=== PATIENT | female | born 1965 | race Caucasian/White ===

== ENCOUNTER 2017-03-19 06:20 | Day surgery (SDC) | payer BC ==
[2017-03-19] MEDS ORDERED: Sodium Chloride 0.9% 1,000 ML IV SCH (07:00)
[2017-03-19] MEDS ORDERED: Midazolam 1 MG/ML 2 ML SDV ONE (07:39)
[2017-03-19] MEDS ORDERED: fentaNYL 100 MCG/2 ML SDV ONE (07:39)
[2017-03-19] MEDS ORDERED: Propofol 200 MG/20 ML SDV ONE (07:40)
[2017-03-19] MEDS ORDERED: Ondansetron 4 MG/2 ML SDV ONE (07:40)
[2017-03-19] MEDS ORDERED: Dexamethasone 4 MG/ML SDV ONE (07:40)
[2017-03-19 09:40] VITALS: BP 114/68
--- NOTE | 2017-03-20 07:30 | OR ---
DATE OF PROCEDURE: 03/19/2017 PROCEDURE: Colonoscopy. FINDINGS: Ascending colon polyp, 5 mm, completely removed using cold biopsy forceps. COMPLICATIONS: None. GENERAL STORE MANAGER: None. PREOPERATIVE DIAGNOSIS: Screening colonoscopy. POSTOPERATIVE DIAGNOSIS: Screening colonoscopy. RISK: Risks, benefits, alternatives, and limitations, including, but not limited to infection, bleeding, and perforation were explained to the patient and wished to proceed. PROCEDURE IN DETAIL: The patient was placed in left lateral decubitus position. Digital rectal exam was performed without abnormality. The scope was then introduced and advanced atraumatically through the ileocecal valve. The scope was brought back to the ascending, transverse, descending colon and retroflexed. In the ascending colon, an approximately 5 mm polyp was identified and completely removed. No abnormalities on retroflexion. No other abnormalities. The patient tolerated the procedure well. Maurice Cleaning MD /[id number]
== END 2017-03-19 09:35 | disposition home or self-care (01) ==
LOC: JP.SDS 06:20
PROVIDERS: ATTEND Surgery
DX: Z12.11 Encounter for screening for malignant neoplasm of colon (principal); D12.0 Benign neoplasm of cecum; Z88.8 Allergy status to other drugs, medicaments and biological substances; Z91.013 Allergy to seafood; F17.200 Nicotine dependence, unspecified, uncomplicated
CPT/HCPCS: 45380; J1100; J2250; J2405; J2704; J3010; J7040; 88305

== ENCOUNTER 2022-07-13 06:37 | Day surgery (SDC) | payer BC ==
[2022-07-13] MEDS ORDERED: fentaNYL 100 MCG/2 ML SDV ONE (07:18)
[2022-07-13] MEDS ORDERED: Midazolam 1 MG/ML 2 ML SDV ONE (07:18)
[2022-07-13] MEDS ORDERED: Propofol 200 MG/20 ML SDV ONE ×2 (07:19→08:38)
[2022-07-13] MEDS ORDERED: Lactated Ringers 1,000 ML IV SCH (07:45)
[2022-07-13 10:10] VITALS: BP 152/65; PULSE 49
== END 2022-07-13 10:05 | disposition home or self-care (01) ==
LOC: JP.SDS 06:37
PROVIDERS: ATTEND Student in an Organized Health Care Education/Training Program
DX: Z12.11 Encounter for screening for malignant neoplasm of colon (principal); D12.0 Benign neoplasm of cecum; K62.1 Rectal polyp; J44.9 Chronic obstructive pulmonary disease, unspecified; I10 Essential (primary) hypertension; E78.5 Hyperlipidemia, unspecified; E66.9 Obesity, unspecified; Z86.010 Personal history of colon polyps; Z88.8 Allergy status to other drugs, medicaments and biological substances
CPT/HCPCS: 45385; 88305; J2250; J2704; J3010; J7120

== ENCOUNTER → 2023-01-21 | Day surgery (SDC) | payer BC ==
[~2023-01-21] MED LIST: Acetaminophen 500 MG Tab PO ONE; Bupivacaine 0.5%/EPINEPHrine 1:200,000 50 ML MDV ONE; Dexamethasone 4 MG/ML SDV ONE; Glycopyrrolate 0.2 MG/ML 5 ML MDV ONE; Lactated Ringers 1,000 ML IV SCH; Neostigmine Methylsulfate 1 MG/ML 5 ML Syringe ONE; Ondansetron 4 MG/2 ML SDV ONE; Propofol 200 MG/20 ML SDV ONE; Rocuronium 50 MG/5 ML Vial ONE; Succinylcholine 200 MG/10 ML MDV ONE; ceFAZolin 2 GM in Premix Bag 1 BAG IV ONE; fentaNYL 250 MCG/5 ML SDV ONE
[2023-01-21 06:54] VITALS: BP 138/76; PULSE 59
[2023-01-21 07:36] LABS: ESTIMATED GFR 85 mL/min (>60)
== END ==
LOC: JP.SDS 06:22
PROVIDERS: ATTEND Student in an Organized Health Care Education/Training Program
DX: K42.9 Umbilical hernia without obstruction or gangrene (principal); Z53.09 Procedure and treatment not carried out because of other contraindication; R94.31 Abnormal electrocardiogram [ECG] [EKG]
CPT/HCPCS: 36415; 80053; 85027; 93005; A9270-GY; J0330; J1100; J2405; J2704; J2710; J3010; J3490; J7120

== ENCOUNTER 2023-04-15 09:13 | Day surgery (SDC) | payer BC ==
[~2023-04-15 09:13] MED LIST changes: -Acetaminophen 500 MG Tab PO ONE; -Bupivacaine 0.5%/EPINEPHrine 1:200,000 50 ML MDV ONE; -Lactated Ringers 1,000 ML IV SCH; -ceFAZolin 2 GM in Premix Bag 1 BAG IV ONE
[2023-04-15] MEDS ORDERED: Bupivacaine 0.5%/EPINEPHrine 1:200,000 50 ML MDV ONE (09:22)
[2023-04-15] MEDS ORDERED: Acetaminophen 500 MG Tab PO ONE (09:30)
[2023-04-15 09:36] LABS: HEMATOCRIT 43.1 % (34.3-46.0); HEMOGLOBIN 14.2 g/dL (11.2-15.5); MEAN CORPUSCULAR HEMOGLOBIN 29.2 pg (31.6-35.5); MEAN CORPUSCULAR HGB CONC 32.9 g/dL (31.6-35.5); MEAN CORPUSCULAR VOLUME 88.5 fL (81.4-99.0); RED BLOOD CELL COUNT 4.87 M/uL (3.77-5.24); WHITE BLOOD CELL COUNT,WBC 9.6 K/uL (3.2-11.0)
[2023-04-15] MEDS ORDERED: Lactated Ringers 1,000 ML IV SCH (09:45)
[2023-04-15 10:08] LABS: ANION GAP 4.6 mmol/L (5.0-14.0); CALCIUM 9.4 mg/dL (8.5-10.1); CREATININE 0.8 mg/dL (0.6-1.0); EST CRCL DRUG DOSING (CG) 60.62 mL/min; POTASSIUM,K 4.2 mmol/L (3.6-5.2)
[2023-04-15] MEDS ORDERED: ceFAZolin 2 GM in Premix Bag 1 BAG IV ONE (10:15)
[2023-04-15] MEDS ORDERED: Albuterol/Ipratropium 3.0-0.5 MG/3 ML Neb Soln NEB ONE (10:17)
[2023-04-15] MEDS ORDERED: fentaNYL 250 MCG/5 ML SDV ONE (11:22)
[2023-04-15] MEDS ORDERED: Lactated Ringers 1,000 ML ONE (11:49)
[2023-04-15] MEDS ORDERED: Acetaminophen/HYDROcodone 325-5 MG Tab PO ONE (14:26)
[2023-04-15] MEDS ORDERED: Ondansetron 4 MG/2 ML SDV IVPUSH PRN (15:31)
[2023-04-15 16:18] VITALS: BP 158/78; PULSE 74
== END 2023-04-15 16:58 | disposition home or self-care (01) ==
LOC: JP.SDS 09:13
PROVIDERS: ATTEND Student in an Organized Health Care Education/Training Program
DX: K42.0 Umbilical hernia with obstruction, without gangrene (principal); E66.01 Morbid (severe) obesity due to excess calories; R74.01 Elevation of levels of liver transaminase levels; K75.89 Other specified inflammatory liver diseases; I10 Essential (primary) hypertension; Z68.35 Body mass index [BMI] 35.0-35.9, adult; F17.210 Nicotine dependence, cigarettes, uncomplicated; Z88.8 Allergy status to other drugs, medicaments and biological substances; K74.5 Biliary cirrhosis, unspecified
CPT/HCPCS: 36415; 49592; 80048; 85027; 94640; A9270; C1781; J0330; J0690; J1100; J2405; J2704; J2710; J3010; J3490; J7120; J7620